=== PATIENT | female | born 1975 | race Caucasian/White ===

== ENCOUNTER → 2018-09-04 | Outpatient (CLI) | payer OTHER ==
--- NOTE | 2018-09-04 18:19 | REP ---
Clinical: Pain. Technique: AP, lateral, bilateral oblique views of the left foot. Findings: Generalized age-related changes are appreciated. Mild ankle swelling cannot be excluded. No acute fracture dislocation. Impression: Generalized age-related changes are suggested. Mild swelling at the ankle cannot be excluded. Electronically Signed by Dangelo Lee MD 09/04/2018 06:11 P
--- NOTE | 2018-09-04 18:19 | REP ---
Clinical: Left ankle pain . Technique: AP, lateral, bilateral oblique views. Findings: Mild soft tissue swelling. No acute fracture dislocation. Joint spaces and ankle mortise are intact. Impression: Mild swelling. No acute fracture or dislocation. Electronically Signed by Dangelo Lee MD 09/04/2018 06:10 P
== END ==
LOC: M WUC 17:51
PROVIDERS: ATTEND Physician Assistant
DX: M25.572 Pain in left ankle and joints of left foot (principal)

== ENCOUNTER 2018-11-02 08:31 | Emergency (ER) | payer OTHER ==
[~2018-11-02] VITALS: Ht 177.8 cm; Wt 97.7 kg
[2018-11-02] MEDS ORDERED: FLUO20CA8 PO (08:51)
[2018-11-02] MEDS ORDERED: NS 1,000 ML IV ONE (09:00)
[2018-11-02] MEDS ORDERED: OXAZEPAM 15 MG CAP PO ONE (09:00)
[2018-11-02] MEDS ORDERED: PROMETHAZINE INJ 25 MG/ML VIAL (J2550) IV ONE (09:00)
[2018-11-02] MEDS ORDERED: THIAMINE 100 MG TAB PO ONE (09:00)
[2018-11-02 09:08] LABS: BASO % 0.5 % (0.0-1.0); EOS % 0.3 % (0.0-3.0); HEMATOCRIT 39.6 % (36.0-47.0); HEMOGLOBIN 13.5 g/dl (12.0-15.5); LYMPH # 1.1 10^3/uL (1.5-4.5); LYMPH % 16.9 % (24.0-44.0); MEAN CORPUSCULAR HEMOGLOBIN 33.6 pg (27.0-33.0); MEAN CORPUSCULAR HGB CONC 34.1 g/dl (32.0-36.5); MEAN CORPUSCULAR VOLUME 98.5 fl (80.0-96.0); MONO # 0.8 10^3/uL (0.0-0.8); MONO % 12.3 % (0.0-5.0); NEUTROPHILS # 4.6 10^3/uL (1.8-7.7); NEUTROPHILS % 69.7 % (36.0-66.0); PLATELET COUNT, AUTOMATED 232 10^3/uL (150-450); RED BLOOD COUNT 4.02 10^6/uL (4.00-5.40); WHITE BLOOD COUNT 6.6 10^3/uL (4.0-10.0)
--- NOTE | 2018-11-02 09:36 | REP ---
PA and lateral chest: There are no comparisons. The lung singleton are clear. The cardiac size is normal. The vincenzo, mediastinum, and skeletal structures are unremarkable. Impression: Negative PA and lateral chest. Electronically Signed by Contreras Tillman MD 11/02/2018 09:27 A
[2018-11-02 09:46] LABS: ALBUMIN 3.6 GM/DL (3.2-5.2); ALT/SGPT 58 U/L (12-78); BILIRUBIN,DIRECT 0.2 MG/DL (0.0-0.2); BILIRUBIN,TOTAL 0.7 MG/DL (0.2-1.0); BLOOD UREA NITROGEN 9 MG/DL (7-18); CARBON DIOXIDE LEVEL 21 MEQ/L (21-32); CHLORIDE LEVEL 106 MEQ/L (98-107); CPK CREATINE PHOSPHOKINASE 243 U/L (26-192); CREATININE FOR GFR 0.74 MG/DL (0.55-1.30); ETHYL ALCOHOL (ETHANOL) 0.016 % (0.000-0.010); FREE T4 0.76 NG/DL (0.76-1.46); GLOMERULAR FILTRATION RATE > 60.0 (>58); GLUCOSE, FASTING 87 MG/DL (70-100); LIPASE 129 U/L (73-393); MB/CK RELATIVE INDEX 0.82 (< OR =4); POTASSIUM SERUM 3.5 MEQ/L (3.5-5.1); SODIUM LEVEL 141 MEQ/L (136-145); THYROID STIMULATING HORMONE 0.762 uIU/ML (0.358-3.740); TOTAL PROTEIN 6.9 GM/DL (6.4-8.2); TROPONIN I < 0.02 NG/ML (< 0.10)
[2018-11-02] MEDS ORDERED: OXAZ30CA2 PO (11:14)
[2018-11-02 11:18] VITALS: BP 176/93
--- NOTE | 2018-11-02 13:43 | ECGEPIP ---
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
== END 2018-11-02 11:31 | disposition home or self-care (01) ==
LOC: M ED 08:31
DX: F10.239 Alcohol dependence with withdrawal, unspecified (principal); D64.9 Anemia, unspecified; Z98.84 Bariatric surgery status; Z88.8 Allergy status to other drugs, medicaments and biological substances
CPT/HCPCS: 36415; 71046; 80048; 80076; 82550; 82553; 83690; 84439; 84443; 84484; 85025; 93005; 93041; 94760; 96361; 96374; 99285; G0480

== ENCOUNTER 2019-09-11 15:49 | Emergency (ER) | payer OTHER ==
[~2019-09-11] VITALS: Ht 177.8 cm; Wt 98.5 kg
[~2019-09-11 15:49] MED LIST: FLUO20CA20 PO; OXAZ30CA2 PO
[2019-09-11] MEDS ORDERED: PROM50TA4 PO (16:04)
[2019-09-11] MEDS ORDERED: OXAZEPAM 15 MG CAP PO ONE (16:45)
[2019-09-11] MEDS ORDERED: NS 1,000 ML IV ONE (16:45)
[2019-09-11] MEDS ORDERED: MULTIVITAMIN -ADULT INJECTION 10 ML, THIAMINE INJection 100 MG, FOLIC ACID 1 MG in NS 1... IV ONE (17:00)
[2019-09-11 17:09] LABS: BASO # 0.1 10^3/uL (0.0-0.2); BASO % 1.1 % (0.0-1.0); EOS # 0.1 10^3/uL (0.0-0.5); EOS % 1.5 % (0.0-3.0); HEMATOCRIT 36.8 % (36.0-47.0); HEMOGLOBIN 12.5 g/dl (12.0-15.5); LYMPH # 1.3 10^3/uL (1.5-5.0); LYMPH % 28.2 % (24.0-44.0); MEAN CORPUSCULAR HEMOGLOBIN 33.1 pg (27.0-33.0); MEAN CORPUSCULAR VOLUME 97.4 fl (80.0-96.0); MONO # 0.7 10^3/uL (0.0-0.8); MONO % 14.3 % (0.0-5.0); NEUTROPHILS # 2.6 10^3/uL (1.5-8.5); NEUTROPHILS % 54.5 % (36.0-66.0); PLATELET COUNT, AUTOMATED 107 10^3/uL (150-450); RED BLOOD COUNT 3.78 10^6/uL (4.00-5.40); WHITE BLOOD COUNT 4.8 10^3/uL (4.0-10.0)
[2019-09-11 17:31] LABS: ALBUMIN 3.3 GM/DL (3.2-5.2); ALT/SGPT 80 U/L (12-78); BILIRUBIN,DIRECT 0.5 MG/DL (0.0-0.2); BILIRUBIN,TOTAL 0.9 MG/DL (0.2-1.0); BLOOD UREA NITROGEN 9 MG/DL (7-18); CARBON DIOXIDE LEVEL 22 MEQ/L (21-32); CHLORIDE LEVEL 104 MEQ/L (98-107); ETHYL ALCOHOL (ETHANOL) 0.224 % (0.000-0.010); GLOMERULAR FILTRATION RATE > 60.0 (>58); GLUCOSE, FASTING 83 MG/DL (70-100); MAGNESIUM LEVEL 1.9 MG/DL (1.8-2.4); POTASSIUM SERUM 3.9 MEQ/L (3.5-5.1); SODIUM LEVEL 139 MEQ/L (136-145); TOTAL PROTEIN 6.5 GM/DL (6.4-8.2)
[2019-09-11 18:53] LABS: INR 1.08; PROTHROMBIN TIME 13.7 SECONDS (11.8-14.0)
[2019-09-11] MEDS ORDERED: PHENobarbitaL 30 MG TAB PO ONE (21:00)
[2019-09-11 21:15] VITALS: BP 140/71
== END 2019-09-11 21:36 | disposition home or self-care (01) ==
LOC: M ED 15:49
DX: F10.230 Alcohol dependence with withdrawal, uncomplicated (principal); R00.0 Tachycardia, unspecified; Z91.013 Allergy to seafood; Z88.8 Allergy status to other drugs, medicaments and biological substances; Z79.899 Other long term (current) drug therapy
CPT/HCPCS: 80048; 80076; 83735; 85025; 85610; 93041; 94760; 96360; 96361; 99285; G0480; J3411

== ENCOUNTER → 2019-10-13 | Emergency (ER) | payer OTHER ==
[~2019-10-13] MED LIST changes: +FLUO20CA22 PO; +NALT50TA4; +OXAZEPAM 15 MG CAP As Ordered ONE; +PROM50TA4 PO
[2019-12-26 15:16] LABS: BLOOD UREA NITROGEN 6 MG/DL (7-18); CALCIUM LEVEL 9.8 MG/DL (8.5-10.1); CARBON DIOXIDE LEVEL 30 MEQ/L (21-32); CHLORIDE LEVEL 104 MEQ/L (98-107); CREATININE FOR GFR 0.71 MG/DL (0.55-1.30); ETHYL ALCOHOL (ETHANOL) < 0.003 % (0.000-0.010); GLOMERULAR FILTRATION RATE > 60.0 (>58); GLUCOSE, FASTING 100 MG/DL (70-100); POTASSIUM SERUM 3.9 MEQ/L (3.5-5.1); SODIUM LEVEL 138 MEQ/L (136-145)
== END | disposition home or self-care (01) ==
LOC: M ED 23:15
DX: F10.239 Alcohol dependence with withdrawal, unspecified (principal); D64.9 Anemia, unspecified; Z91.013 Allergy to seafood; Z79.899 Other long term (current) drug therapy; Z87.891 Personal history of nicotine dependence
CPT/HCPCS: 36415; 80048; 99284; G0480

== ENCOUNTER 2020-01-23 12:16 | Emergency (ER) | payer OTHER ==
[~2020-01-23] VITALS: Ht 177.8 cm; Wt 90.3 kg
[~2020-01-23 12:16] MED LIST changes: -FLUO20CA22 PO; -NALT50TA4; -OXAZEPAM 15 MG CAP As Ordered ONE
[2020-01-23] MEDS ORDERED: FLUO20CA22 PO (12:29)
[2020-01-23] MEDS ORDERED: NALT50TA4 (12:29)
[2020-01-23] MEDS ORDERED: THIAMINE 100 MG TAB PO ONE (12:45)
[2020-01-23] MEDS: NS 1,000 ML IV SCH (13:04)
[2020-01-23 13:19] LABS: HEMATOCRIT 41.5 % (36.0-47.0); HEMOGLOBIN 13.7 g/dl (12.0-15.5); MEAN CORPUSCULAR HEMOGLOBIN 30.6 pg (27.0-33.0); MEAN CORPUSCULAR VOLUME 92.8 fl (80.0-96.0); RED BLOOD COUNT 4.47 10^6/uL (4.00-5.40); WHITE BLOOD COUNT 6.8 10^3/uL (4.0-10.0)
[2020-01-23 13:26] LABS: PLATELET COUNT, AUTOMATED 95 10^3/uL (150-450)
[2020-01-23 13:40] LABS: ACETAMINOPHEN LEVEL < 2.0 UG/ML (10.0-30.0); ALBUMIN 3.7 GM/DL (3.2-5.2); ALT/SGPT 55 U/L (12-78); BILIRUBIN,DIRECT 0.5 MG/DL (0.0-0.2); BLOOD UREA NITROGEN 14 MG/DL (7-18); CALCIUM LEVEL 8.2 MG/DL (8.5-10.1); CARBON DIOXIDE LEVEL 20 MEQ/L (21-32); CHLORIDE LEVEL 105 MEQ/L (98-107); CREATININE FOR GFR 0.75 MG/DL (0.55-1.30); ETHYL ALCOHOL (ETHANOL) 0.402 % (0.000-0.010); GLOMERULAR FILTRATION RATE > 60.0 (>58); GLUCOSE, FASTING 79 MG/DL (70-100); POTASSIUM SERUM 3.8 MEQ/L (3.5-5.1); SALICYLATE LEVEL < 1.7 MG/DL (5.0-30.0); SODIUM LEVEL 141 MEQ/L (136-145); THYROID STIMULATING HORMONE 0.404 uIU/ML (0.358-3.740); TOTAL PROTEIN 6.8 GM/DL (6.4-8.2)
[2020-01-23 13:42] LABS: AMPHETAMINES LEVEL URINE NEGATIVE (NEGATIVE); BARBITURATES URINE NEGATIVE (NEGATIVE); BENZODIAZEPINES URINE POSITIVE (NEGATIVE); CANNABINOIDS URINE NEGATIVE (NEGATIVE); COCAINE METABOLITE URINE NEGATIVE (NEGATIVE); METHADONE URINE NEGATIVE (NEGATIVE); OPIATES URINE NEGATIVE (NEGATIVE); PHENCYCLIDINE URINE NEGATIVE (NEGATIVE)
[2020-01-23] MEDS ORDERED: OXAZEPAM 15 MG CAP PO ONE (15:30)
[2020-01-23] MEDS ORDERED: LORazepam 2 MG/ML VIAL IV STA (15:33)
[2020-01-24] MEDS ORDERED: LORazepam 2 MG TAB PO PRN (00:45)
[2020-01-24] MEDS: NS 1,000 ML IV SCH (02:01)
[2020-01-24] MEDS ORDERED: OXAZEPAM 15 MG CAP PO ONE (03:00)
[2020-01-24] MEDS ORDERED: METAL LOCK LOOP XX ONE (03:07)
[2020-01-24 03:19] VITALS: BP 164/90
[2020-01-24] MEDS ORDERED: FOLIC ACID 1 MG TAB PO SCH (09:00)
[2020-01-24] MEDS ORDERED: MULTIVITAMINS/MINERALS THERAP 1 TAB PO SCH (09:00)
[2020-01-24] MEDS ORDERED: THIAMINE 100 MG TAB PO SCH (09:00)
--- NOTE | 2020-01-24 18:53 | ECGEPIP ---
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
== END 2020-01-24 03:54 | disposition home or self-care (01) ==
LOC: M ED 12:16
DX: F10.220 Alcohol dependence with intoxication, uncomplicated (principal); R00.0 Tachycardia, unspecified; S51.811A Laceration without foreign body of right forearm, initial encounter; X78.1XXA Intentional self-harm by knife, initial encounter; Y92.89 Other specified places as the place of occurrence of the external cause; F32.9 Major depressive disorder, single episode, unspecified; F41.9 Anxiety disorder, unspecified; Z91.013 Allergy to seafood; Z88.8 Allergy status to other drugs, medicaments and biological substances; Z98.84 Bariatric surgery status; Z79.899 Other long term (current) drug therapy
CPT/HCPCS: 80048; 80076; 80307; 84443; 85027; 85049; 85055; 93005; 93041; 94760; 96360; 96361; 99285; G0480

== ENCOUNTER 2020-08-10 08:38 | Emergency (ER) | payer OTHER ==
[~2020-08-10] VITALS: Ht 177.8 cm; Wt 100.0 kg
[~2020-08-10 08:38] MED LIST changes: +FLUO20CA22 PO; +NALT50TA4
[2020-08-10] MEDS ORDERED: LORazepam 2 MG TAB PO PRN (08:55)
[2020-08-10] MEDS ORDERED: OXAZEPAM 15 MG CAP PO ONE (08:55)
[2020-08-10] MEDS ORDERED: MULTIVITAMINS/MINERALS THERAP 1 TAB PO SCH (09:00)
[2020-08-10] MEDS ORDERED: THIAMINE 100 MG TAB PO SCH (09:00)
[2020-08-10] MEDS ORDERED: FOLIC ACID 1 MG TAB PO SCH (09:00)
[2020-08-10] MEDS ORDERED: VITACAP8 PO (09:08)
[2020-08-10] MEDS ORDERED: OXAZ30CA2 PO (11:07)
[2020-08-10 11:30] VITALS: BP 133/82
== END 2020-08-10 11:52 | disposition home or self-care (01) ==
LOC: M ED 08:38
DX: F10.10 Alcohol abuse, uncomplicated (principal); Z79.899 Other long term (current) drug therapy; Z91.89 Other specified personal risk factors, not elsewhere classified; Z91.013 Allergy to seafood

== ENCOUNTER 2020-09-14 16:10 | Emergency (ER) | payer OTHER ==
[~2020-09-14] VITALS: Ht 177.8 cm; Wt 95.5 kg
[~2020-09-14 16:10] MED LIST changes: +VITACAP8 PO
[2020-09-14] MEDS ORDERED: MULTIVITAMIN -ADULT INJECTION 10 ML, THIAMINE INJection 100 MG, FOLIC ACID 1 MG in NS 1... IV ONE (16:25)
[2020-09-14 17:07] LABS: HEMATOCRIT 38.4 % (36.0-47.0); HEMOGLOBIN 12.7 g/dl (12.0-15.5); MEAN CORPUSCULAR HEMOGLOBIN 29.5 pg (27.0-33.0); MEAN CORPUSCULAR HGB CONC 33.1 g/dl (32.0-36.5); MEAN CORPUSCULAR VOLUME 89.1 fl (80.0-96.0); PLATELET COUNT, AUTOMATED 322 10^3/uL (150-450); RED BLOOD COUNT 4.31 10^6/uL (4.00-5.40)
[2020-09-14 17:31] LABS: ALBUMIN 3.5 GM/DL (3.2-5.2); ALT/SGPT 38 U/L (12-78); BILIRUBIN,DIRECT 0.1 MG/DL (0.0-0.2); BILIRUBIN,TOTAL 0.3 MG/DL (0.2-1.0); BLOOD UREA NITROGEN 9 MG/DL (7-18); CARBON DIOXIDE LEVEL 23 MEQ/L (21-32); CHLORIDE LEVEL 111 MEQ/L (98-107); CREATININE FOR GFR 0.52 MG/DL (0.55-1.30); GLOMERULAR FILTRATION RATE > 60.0 (>58); GLUCOSE, FASTING 81 MG/DL (70-100); POTASSIUM SERUM 3.7 MEQ/L (3.5-5.1); SALICYLATE LEVEL < 1.7 MG/DL (5.0-30.0); SODIUM LEVEL 146 MEQ/L (136-145); TOTAL PROTEIN 6.9 GM/DL (6.4-8.2)
[2020-09-14 17:32] LABS: AMPHETAMINES LEVEL URINE NEGATIVE (NEGATIVE); BARBITURATES URINE NEGATIVE (NEGATIVE); BENZODIAZEPINES URINE NEGATIVE (NEGATIVE); CANNABINOIDS URINE NEGATIVE (NEGATIVE); COCAINE METABOLITE URINE NEGATIVE (NEGATIVE); METHADONE URINE NEGATIVE (NEGATIVE); OPIATES URINE NEGATIVE (NEGATIVE); PHENCYCLIDINE URINE NEGATIVE (NEGATIVE)
[2020-09-14 17:32] LABS: ACETAMINOPHEN LEVEL < 2.0 UG/ML (10.0-30.0); THYROID STIMULATING HORMONE 0.306 uIU/ML (0.358-3.740)
[2020-09-14 17:34] LABS: HCG, SERUM QUALITATIVE NEGATIVE (NEGATIVE)
[2020-09-14] MEDS ORDERED: ACETAMINOPHEN TAB 650MG DOSE (2X325MG) PO ONE (18:40)
--- NOTE | 2020-09-14 19:30 | ECGEPIP ---
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
[2020-09-14] MEDS ORDERED: OXAZEPAM 15 MG CAP PO ONE (23:05)
[2020-09-15 01:00] VITALS: BP 148/81
== END 2020-09-15 01:17 | disposition home or self-care (01) ==
LOC: M ED 16:10 → EDBD 16:10 → M ED 09-15 01:17
DX: F10.129 Alcohol abuse with intoxication, unspecified (principal); F41.9 Anxiety disorder, unspecified; F32.9 Major depressive disorder, single episode, unspecified; Z98.84 Bariatric surgery status; Z79.899 Other long term (current) drug therapy; Z91.89 Other specified personal risk factors, not elsewhere classified; Z91.013 Allergy to seafood
CPT/HCPCS: 80048; 80076; 80143; 80307; 82077; 84443; 84703; 85027; 93005; 93041; 96365; 96366; 99285; J3411

== ENCOUNTER 2020-09-26 13:19 | Emergency (ER) | payer OTHER ==
[~2020-09-26] VITALS: Ht 177.8 cm; Wt 95.5 kg
[2020-09-26] MEDS ORDERED: NALT50TA4 PO (13:28)
[2020-09-26] MEDS ORDERED: HYDR50CA2 PO (13:28)
[2020-09-26] MEDS ORDERED: MULTIVITAMIN -ADULT INJECTION 10 ML, THIAMINE INJection 100 MG, FOLIC ACID 1 MG in NS 1... IV ONE (15:25)
[2020-09-26 16:19] LABS: BASO % 1.2 % (0.0-1.0); EOS % 1.2 % (0.0-3.0); HEMATOCRIT 36.6 % (36.0-47.0); HEMOGLOBIN 12.2 g/dl (12.0-15.5); LYMPH # 1.7 10^3/uL (1.5-5.0); LYMPH % 50.7 % (24.0-44.0); MEAN CORPUSCULAR HEMOGLOBIN 29.5 pg (27.0-33.0); MEAN CORPUSCULAR HGB CONC 33.3 g/dl (32.0-36.5); MEAN CORPUSCULAR VOLUME 88.4 fl (80.0-96.0); MONO # 0.4 10^3/uL (0.0-0.8); MONO % 11.4 % (2.0-8.0); NEUTROPHILS # 1.2 10^3/uL (1.5-8.5); NEUTROPHILS % 35.2 % (36.0-66.0); PLATELET COUNT, AUTOMATED 265 10^3/uL (150-450); RED BLOOD COUNT 4.14 10^6/uL (4.00-5.40); WHITE BLOOD COUNT 3.4 10^3/uL (4.0-10.0)
[2020-09-26 17:04] LABS: ALBUMIN 3.5 GM/DL (3.2-5.2); ALT/SGPT 54 U/L (12-78); BILIRUBIN,TOTAL 0.3 MG/DL (0.2-1.0); BLOOD UREA NITROGEN 6 MG/DL (7-18); CALCIUM LEVEL 8.4 MG/DL (8.5-10.1); CARBON DIOXIDE LEVEL 27 MEQ/L (21-32); CHLORIDE LEVEL 110 MEQ/L (98-107); GLOMERULAR FILTRATION RATE > 60.0 (>58); GLUCOSE, FASTING 86 MG/DL (70-100); POTASSIUM SERUM 4.2 MEQ/L (3.5-5.1); SODIUM LEVEL 144 MEQ/L (136-145); TOTAL PROTEIN 6.7 GM/DL (6.4-8.2)
[2020-09-26] MEDS ORDERED: OXAZEPAM 15 MG CAP PO ONE ×2 (19:45→21:40)
[2020-09-26] MEDS ORDERED: OXAZ30CA2 PO (21:15)
[2020-09-26 21:57] VITALS: BP 141/99
== END 2020-09-26 22:00 | disposition home or self-care (01) ==
LOC: M ED 13:19
DX: F10.139 Alcohol abuse with withdrawal, unspecified (principal); F32.9 Major depressive disorder, single episode, unspecified; F41.9 Anxiety disorder, unspecified; F17.200 Nicotine dependence, unspecified, uncomplicated; Z79.899 Other long term (current) drug therapy; Z91.89 Other specified personal risk factors, not elsewhere classified; Z91.013 Allergy to seafood
CPT/HCPCS: 80053; 85025; 96365; 96366; 99285; J3411

== ENCOUNTER → 2020-10-02 | Outpatient (REF) | payer OTHER ==
[~2020-10-02] MED LIST changes: +HYDR50CA2 PO; +NALT50TA4 PO
== END ==
LOC: M LAB REF 19:41
PROVIDERS: ATTEND Physician Assistant
DX: K60.2 Anal fissure, unspecified (principal)

== ENCOUNTER 2020-10-13 09:42 | Emergency (ER) | payer OTHER ==
[~2020-10-13] VITALS: Ht 177.8 cm; Wt 97.0 kg
[2020-10-13] MEDS ORDERED: AMOX875T2 (09:58)
[2020-10-13] MEDS ORDERED: MULTIVITAMIN -ADULT INJECTION 10 ML, THIAMINE INJection 100 MG, FOLIC ACID 1 MG in NS 1... IV ONE (10:55)
[2020-10-13] MEDS ORDERED: LORazepam 2 MG/ML VIAL IV STA (10:56)
[2020-10-13 11:07] LABS: HEMATOCRIT 37.1 % (36.0-47.0); HEMOGLOBIN 12.1 g/dl (12.0-15.5); MEAN CORPUSCULAR HGB CONC 32.6 g/dl (32.0-36.5); PLATELET COUNT, AUTOMATED 299 10^3/uL (150-450); RED BLOOD COUNT 4.17 10^6/uL (4.00-5.40)
[2020-10-13 11:25] LABS: ETHYL ALCOHOL (ETHANOL) 0.046 % (0.000-0.010)
[2020-10-13] MEDS: LORazepam 2 MG TAB PO PRN ×2 (12:31→15:35)
[2020-10-13 12:57] LABS: ACETAMINOPHEN LEVEL < 2.0 UG/ML (10.0-30.0); ALBUMIN 3.7 GM/DL (3.2-5.2); ALT/SGPT 60 U/L (12-78); BILIRUBIN,DIRECT 0.1 MG/DL (0.0-0.2); BILIRUBIN,TOTAL 0.7 MG/DL (0.2-1.0); BLOOD UREA NITROGEN 8 MG/DL (7-18); CALCIUM LEVEL 8.6 MG/DL (8.5-10.1); CARBON DIOXIDE LEVEL 23 MEQ/L (21-32); CHLORIDE LEVEL 106 MEQ/L (98-107); CREATININE FOR GFR 0.54 MG/DL (0.55-1.30); GLOMERULAR FILTRATION RATE > 60.0 (>58); GLUCOSE, FASTING 84 MG/DL (70-100); POTASSIUM SERUM 4.8 MEQ/L (3.5-5.1); SALICYLATE LEVEL < 1.7 MG/DL (5.0-30.0); SODIUM LEVEL 139 MEQ/L (136-145); THYROID STIMULATING HORMONE 0.489 uIU/ML (0.358-3.740); TOTAL PROTEIN 7.3 GM/DL (6.4-8.2)
[2020-10-13] MEDS ORDERED: ACETAMINOPHEN 325 MG TAB PO ONE (13:55)
[2020-10-13 15:38] VITALS: BP 148/74
== END 2020-10-13 15:40 | disposition home or self-care (01) ==
LOC: M ED 09:42
DX: F10.120 Alcohol abuse with intoxication, uncomplicated (principal)
CPT/HCPCS: 80047; 80048; 80076; 80143; 82077; 84443; 85027; 93041; 96365; 96366; 96375; 99285; J2060; J3411

== ENCOUNTER 2021-03-14 10:37 | Emergency (ER) | payer OTHER ==
[~2021-03-14] VITALS: Ht 177.8 cm; Wt 77.3 kg
[~2021-03-14 10:37] MED LIST changes: +AMOX875T2; +FOLIC ACID 1 MG TAB PO SCH; +MULTIVITAMINS/MINERALS THERAP 1 TAB PO SCH; +THIAMINE 100 MG TAB PO SCH
[2021-03-14] MEDS ORDERED: LORazepam 2 MG TAB PO PRN (11:05)
[2021-03-14] MEDS ORDERED: ONDANSETRON 4MG/2ML VIAL IV ONE (11:05)
[2021-03-14 14:00] VITALS: BP 138/93
[2021-03-14 14:04] LABS: RSV AMPLIFICATION NEGATIVE (NEGATIVE)
== END 2021-03-14 14:49 | disposition home or self-care (01) ==
LOC: M ED 10:37 → EDBD 10:37 → M ED 14:49
DX: F10.10 Alcohol abuse, uncomplicated (principal); F41.9 Anxiety disorder, unspecified; F32.9 Major depressive disorder, single episode, unspecified; Z98.84 Bariatric surgery status; Z79.899 Other long term (current) drug therapy; Z91.89 Other specified personal risk factors, not elsewhere classified; Z91.013 Allergy to seafood
CPT/HCPCS: 87631; 93041; 96374; 99285; J2405

== ENCOUNTER 2021-05-15 08:01 | Emergency (ER) | payer OTHER ==
[~2021-05-15] VITALS: Ht 177.8 cm; Wt 102.7 kg
[~2021-05-15 08:01] MED LIST changes: +FLUO-96 PO; -FLUO20CA20 PO; -FOLIC ACID 1 MG TAB PO SCH; -MULTIVITAMINS/MINERALS THERAP 1 TAB PO SCH; -THIAMINE 100 MG TAB PO SCH
[2021-05-15] MEDS ORDERED: NS 1,000 ML IV ONE (08:55)
[2021-05-15] MEDS ORDERED: LORazepam 2 MG TAB PO PRN (08:55)
[2021-05-15] MEDS ORDERED: OXAZEPAM 15MG CAP PO ONE (08:55)
[2021-05-15] MEDS ORDERED: FOLIC ACID 1 MG TAB PO SCH (09:00)
[2021-05-15] MEDS ORDERED: MULTIVITAMINS/MINERALS THERAP 1 TAB PO SCH (09:00)
[2021-05-15] MEDS ORDERED: THIAMINE 100 MG TAB PO SCH (09:00)
[2021-05-15 09:06] LABS: HEMATOCRIT 36.5 % (36.0-47.0); HEMOGLOBIN 11.7 g/dl (12.0-15.5); MEAN CORPUSCULAR HEMOGLOBIN 26.3 pg (27.0-33.0); MEAN CORPUSCULAR HGB CONC 32.1 g/dl (32.0-36.5); PLATELET COUNT, AUTOMATED 292 10^3/uL (150-450); RED BLOOD COUNT 4.45 10^6/uL (4.00-5.40); WHITE BLOOD COUNT 6.7 10^3/uL (4.0-10.0)
[2021-05-15 09:23] LABS: INR 1.03; PROTHROMBIN TIME 13.9 SECONDS (12.7-14.5)
[2021-05-15 09:40] LABS: ALBUMIN 3.7 GM/DL (3.2-5.2); ALT/SGPT 44 U/L (12-78); BILIRUBIN,DIRECT 0.2 MG/DL (0.0-0.2); BILIRUBIN,TOTAL 0.8 MG/DL (0.2-1.0); BLOOD UREA NITROGEN 10 MG/DL (7-18); CALCIUM LEVEL 9.1 MG/DL (8.5-10.1); CARBON DIOXIDE LEVEL 27 MEQ/L (21-32); CHLORIDE LEVEL 104 MEQ/L (98-107); CREATININE FOR GFR 0.75 MG/DL (0.55-1.30); ETHYL ALCOHOL (ETHANOL) < 0.003 % (0.000-0.010); GLOMERULAR FILTRATION RATE > 60.0 (>58); GLUCOSE, FASTING 89 MG/DL (70-100); LIPASE 70 U/L (73-393); POTASSIUM SERUM 4.2 MEQ/L (3.5-5.1); SODIUM LEVEL 138 MEQ/L (136-145); TOTAL PROTEIN 7.4 GM/DL (6.4-8.2)
[2021-05-15 10:02] LABS: RSV AMPLIFICATION NEGATIVE (NEGATIVE)
[2021-05-15 13:29] LABS: AMPHETAMINES LEVEL URINE NEGATIVE (NEGATIVE); BARBITURATES URINE NEGATIVE (NEGATIVE); BENZODIAZEPINES URINE POSITIVE (NEGATIVE); CANNABINOIDS URINE POSITIVE (NEGATIVE); COCAINE METABOLITE URINE NEGATIVE (NEGATIVE); METHADONE URINE NEGATIVE (NEGATIVE); OPIATES URINE NEGATIVE (NEGATIVE); PHENCYCLIDINE URINE NEGATIVE (NEGATIVE)
[2021-05-15 13:46] VITALS: BP 179/89
== END 2021-05-15 13:53 | disposition home or self-care (01) ==
LOC: M ED 08:01
DX: F10.130 Alcohol abuse with withdrawal, uncomplicated (principal); U07.1 COVID-19; F17.200 Nicotine dependence, unspecified, uncomplicated; Z91.013 Allergy to seafood; Z79.899 Other long term (current) drug therapy

== ENCOUNTER 2021-07-09 10:00 | Outpatient (RCR) | payer BC, OTHER | END 2021-07-11 | LOC: M OUTALCOH 10:00 | PROVIDERS: ATTEND Psychiatry & Neurology Psychiatry | DX: F10.20 Alcohol dependence, uncomplicated (principal) ==

== ENCOUNTER 2021-08-06 15:58 | Emergency (ER) | payer BC ==
[~2021-08-06] VITALS: Ht 177.8 cm; Wt 104.5 kg
[2021-08-06] MEDS ORDERED: LORazepam 2 MG TAB PO PRN (18:25)
[2021-08-06] MEDS ORDERED: MULTIVITAMIN -ADULT INJECTION 10 ML, THIAMINE INJection 100 MG, FOLIC ACID 1 MG in NS 1... IV ONE (18:25)
[2021-08-06 18:56] VITALS: BP 159/91
[2021-08-06 19:02] LABS: BASO % 0.6 % (0.0-1.0); EOS # 0.1 10^3/uL (0.0-0.5); EOS % 2.2 % (0.0-3.0); HEMATOCRIT 35.7 % (36.0-47.0); HEMOGLOBIN 11.4 g/dl (12.0-15.5); LYMPH # 2.2 10^3/uL (1.5-5.0); LYMPH % 44.3 % (24.0-44.0); MEAN CORPUSCULAR HEMOGLOBIN 25.7 pg (27.0-33.0); MEAN CORPUSCULAR HGB CONC 31.9 g/dl (32.0-36.5); MEAN CORPUSCULAR VOLUME 80.6 fl (80.0-96.0); MONO # 0.5 10^3/uL (0.0-0.8); MONO % 10.9 % (2.0-8.0); NEUTROPHILS # 2.1 10^3/uL (1.5-8.5); NEUTROPHILS % 41.8 % (36.0-66.0); PLATELET COUNT, AUTOMATED 244 10^3/uL (150-450); RED BLOOD COUNT 4.43 10^6/uL (4.00-5.40); WHITE BLOOD COUNT 4.9 10^3/uL (4.0-10.0)
[2021-08-06 19:13] LABS: INR 1.05; PROTHROMBIN TIME 14.1 SECONDS (12.7-14.5)
[2021-08-06 19:14] LABS: PARTIAL THROMBOPLASTIN TIME 29.4 SECONDS (25.9-37.0)
[2021-08-06 19:28] LABS: ALBUMIN 3.3 GM/DL (3.2-5.2); ALT/SGPT 27 U/L (12-78); BILIRUBIN,TOTAL 0.5 MG/DL (0.2-1.0); BLOOD UREA NITROGEN 10 MG/DL (7-18); CALCIUM LEVEL 8.5 MG/DL (8.5-10.1); CARBON DIOXIDE LEVEL 25 MEQ/L (21-32); CHLORIDE LEVEL 108 MEQ/L (98-107); GLOMERULAR FILTRATION RATE > 60.0 (>58); GLUCOSE, FASTING 87 MG/DL (70-100); POTASSIUM SERUM 4.6 MEQ/L (3.5-5.1); SODIUM LEVEL 142 MEQ/L (136-145); TOTAL PROTEIN 6.9 GM/DL (6.4-8.2)
[2021-08-06] MEDS ORDERED: ONDANSETRON 4MG/2ML VIAL IV ONE (19:55)
[2021-08-06] MEDS ORDERED: ACETAMINOPHEN 325 MG TAB PO ONE (19:55)
[2021-08-06] MEDS ORDERED: OXAZEPAM 15MG CAP PO ONE (20:15)
[2021-08-06] MEDS ORDERED: OXAZ30CA2 PO (20:20)
== END 2021-08-06 22:17 | disposition home or self-care (01) ==
LOC: M ED 15:58
DX: F10.139 Alcohol abuse with withdrawal, unspecified (principal); R11.0 Nausea; R51.9 Headache, unspecified; F17.200 Nicotine dependence, unspecified, uncomplicated; Z91.013 Allergy to seafood
CPT/HCPCS: 80053; 82077; 85025; 85610; 85730; 96365; 96375; 99284; J2405; J3411

== ENCOUNTER 2021-08-18 10:09 | Emergency (ER) | payer OTHER, BC ==
[~2021-08-18] VITALS: Ht 177.8 cm; Wt 98.2 kg
[~2021-08-18 10:09] MED LIST changes: +FOLIC ACID 1 MG TAB PO SCH; +MULTIVITAMINS/MINERALS THERAP 1 TAB PO SCH; +THIAMINE 100 MG TAB PO SCH
[2021-08-18] MEDS ORDERED: NALT50TA4 (10:39)
[2021-08-18] MEDS ORDERED: FLUO10CA18 PO (10:39)
[2021-08-18] MEDS ORDERED: LORazepam 2 MG TAB PO PRN (13:30)
[2021-08-18 13:31] LABS: BASO % 1.2 % (0.0-1.0); EOS % 1.2 % (0.0-3.0); HEMATOCRIT 37.3 % (36.0-47.0); LYMPH # 1.1 10^3/uL (1.5-5.0); MEAN CORPUSCULAR HEMOGLOBIN 26.8 pg (27.0-33.0); MEAN CORPUSCULAR HGB CONC 32.2 g/dl (32.0-36.5); MEAN CORPUSCULAR VOLUME 83.3 fl (80.0-96.0); MONO # 0.3 10^3/uL (0.0-0.8); MONO % 9.1 % (2.0-8.0); NEUTROPHILS # 1.9 10^3/uL (1.5-8.5); NEUTROPHILS % 56.5 % (36.0-66.0); PLATELET COUNT, AUTOMATED 165 10^3/uL (150-450); RED BLOOD COUNT 4.48 10^6/uL (4.00-5.40); WHITE BLOOD COUNT 3.4 10^3/uL (4.0-10.0)
[2021-08-18 13:55] LABS: AMPHETAMINES LEVEL URINE NEGATIVE (NEGATIVE); BARBITURATES URINE NEGATIVE (NEGATIVE); BENZODIAZEPINES URINE POSITIVE (NEGATIVE); CANNABINOIDS URINE NEGATIVE (NEGATIVE); COCAINE METABOLITE URINE NEGATIVE (NEGATIVE); METHADONE URINE NEGATIVE (NEGATIVE); OPIATES URINE NEGATIVE (NEGATIVE); PHENCYCLIDINE URINE NEGATIVE (NEGATIVE)
[2021-08-18 14:05] LABS: ACETAMINOPHEN LEVEL < 2.0 UG/ML (10.0-30.0); ALBUMIN 3.5 GM/DL (3.2-5.2); ALT/SGPT 51 U/L (12-78); BILIRUBIN,DIRECT 0.2 MG/DL (0.0-0.2); BILIRUBIN,TOTAL 0.4 MG/DL (0.2-1.0); BLOOD UREA NITROGEN 12 MG/DL (7-18); CALCIUM LEVEL 8.8 MG/DL (8.5-10.1); CARBON DIOXIDE LEVEL 23 MEQ/L (21-32); CHLORIDE LEVEL 108 MEQ/L (98-107); CREATININE FOR GFR 0.61 MG/DL (0.55-1.30); ETHYL ALCOHOL (ETHANOL) 0.225 % (0.000-0.010); GLOMERULAR FILTRATION RATE > 60.0 (>58); GLUCOSE, FASTING 86 MG/DL (70-100); LIPASE 235 U/L (73-393); POTASSIUM SERUM 4.4 MEQ/L (3.5-5.1); SALICYLATE LEVEL < 1.7 MG/DL (5.0-30.0); SODIUM LEVEL 140 MEQ/L (136-145); TOTAL PROTEIN 7.3 GM/DL (6.4-8.2)
[2021-08-18 15:08] LABS: RSV AMPLIFICATION NEGATIVE (NEGATIVE)
[2021-08-18] MEDS ORDERED: MULTIVITAMIN -ADULT INJECTION 10 ML, THIAMINE INJection 100 MG, FOLIC ACID 1 MG in NS 1... IV ONE (16:00)
[2021-08-18] MEDS ORDERED: ONDANSETRON 4MG/2ML VIAL IV ONE (17:45)
[2021-08-18] MEDS ORDERED: OXAZ10CA3 PO ×6 (17:59→19:08)
[2021-08-18] MEDS ORDERED: OXAZEPAM 10MG CAP PO ONE (18:00)
[2021-08-18 19:03] VITALS: BP 147/80
== END 2021-08-18 19:19 | disposition home or self-care (01) ==
LOC: M ED 10:09
DX: F10.180 Alcohol abuse with alcohol-induced anxiety disorder (principal); R11.0 Nausea; E86.0 Dehydration; R74.01 Elevation of levels of liver transaminase levels; F32.A Depression, unspecified; Z98.84 Bariatric surgery status; F17.200 Nicotine dependence, unspecified, uncomplicated; Z79.899 Other long term (current) drug therapy
CPT/HCPCS: 80048; 80076; 80143; 80307; 82077; 83690; 84443; 85025; 87631; 93041; 94760; 96365; 96366; 96375; 99284; J2405; J3411

== ENCOUNTER 2021-10-24 15:38 | Emergency (ER) | payer BC, OTHER ==
[~2021-10-24] VITALS: Ht 177.8 cm; Wt 94.5 kg
[~2021-10-24 15:38] MED LIST changes: +FLUO10CA18 PO; -FOLIC ACID 1 MG TAB PO SCH; -MULTIVITAMINS/MINERALS THERAP 1 TAB PO SCH; +OXAZ10CA3 PO; -THIAMINE 100 MG TAB PO SCH
[2021-10-24] MEDS ORDERED: OXAZ30CA2 (15:57)
[2021-10-24] MEDS ORDERED: ACAM0.05 (15:57)
[2021-10-24] MEDS ORDERED: MULTIVITAMIN -ADULT INJECTION 10 ML, THIAMINE INJection 100 MG, FOLIC ACID 1 MG in NS 1... IV ONE (16:40)
[2021-10-24] MEDS ORDERED: NS 500 ML IV ONE (16:40)
[2021-10-24] MEDS ORDERED: MIDAZOLAM INJ 2MG/2ML VIAL (J2250 PER 1MG) IV STA (16:41)
[2021-10-24] MEDS ORDERED: LORazepam 2 MG TAB PO PRN (17:10)
[2021-10-24 17:19] LABS: HEMATOCRIT 37.6 % (36.0-47.0); HEMOGLOBIN 12.2 g/dl (12.0-15.5); MEAN CORPUSCULAR HEMOGLOBIN 26.1 pg (27.0-33.0); MEAN CORPUSCULAR HGB CONC 32.4 g/dl (32.0-36.5); MEAN CORPUSCULAR VOLUME 80.5 fl (80.0-96.0); PLATELET COUNT, AUTOMATED 306 10^3/uL (150-450); RED BLOOD COUNT 4.67 10^6/uL (4.00-5.40); WHITE BLOOD COUNT 7.9 10^3/uL (4.0-10.0)
[2021-10-24 18:00] LABS: ALBUMIN 3.8 GM/DL (3.2-5.2); ALT/SGPT 29 U/L (12-78); BILIRUBIN,DIRECT 0.2 MG/DL (0.0-0.2); BILIRUBIN,TOTAL 0.6 MG/DL (0.2-1.0); BLOOD UREA NITROGEN 11 MG/DL (7-18); CALCIUM LEVEL 8.6 MG/DL (8.5-10.1); CARBON DIOXIDE LEVEL 23 MEQ/L (21-32); CHLORIDE LEVEL 102 MEQ/L (98-107); CREATININE FOR GFR 0.78 MG/DL (0.55-1.30); ETHYL ALCOHOL (ETHANOL) 0.274 % (0.000-0.010); GLOMERULAR FILTRATION RATE > 60.0 (>58); GLUCOSE, FASTING 70 MG/DL (70-100); POTASSIUM SERUM 4.2 MEQ/L (3.5-5.1); SALICYLATE LEVEL < 1.7 MG/DL (5.0-30.0); SODIUM LEVEL 136 MEQ/L (136-145); THYROID STIMULATING HORMONE 0.489 uIU/ML (0.358-3.740); TOTAL PROTEIN 7.5 GM/DL (6.4-8.2)
[2021-10-24 18:01] LABS: ACETAMINOPHEN LEVEL < 2.0 UG/ML (10.0-30.0)
[2021-10-24] MEDS ORDERED: PILL CUTTER 1 EACH XX ONE (18:46)
[2021-10-24 20:17] LABS: AMPHETAMINES LEVEL URINE NEGATIVE (NEGATIVE); BARBITURATES URINE NEGATIVE (NEGATIVE); BENZODIAZEPINES URINE NEGATIVE (NEGATIVE); CANNABINOIDS URINE POSITIVE (NEGATIVE); COCAINE METABOLITE URINE NEGATIVE (NEGATIVE); METHADONE URINE NEGATIVE (NEGATIVE); OPIATES URINE NEGATIVE (NEGATIVE); PHENCYCLIDINE URINE NEGATIVE (NEGATIVE)
[2021-10-24] MEDS ORDERED: THIAMINE 100 MG TAB PO SCH (21:00)
[2021-10-24] MEDS ORDERED: OXAZEPAM 15MG CAP PO ONE (22:00)
[2021-10-24] MEDS ORDERED: OXAZ30CA2 PO (22:00)
[2021-10-24 22:45] VITALS: BP 131/85
[2021-10-25] MEDS ORDERED: MULTIVITAMINS/MINERALS THERAP 1 TAB PO SCH (09:00)
[2021-10-25] MEDS ORDERED: FOLIC ACID 1MG TAB PO SCH (09:00)
== END 2021-10-24 23:15 | disposition home or self-care (01) ==
LOC: M ED 15:38
DX: F10.239 Alcohol dependence with withdrawal, unspecified (principal)
CPT/HCPCS: 80048; 80076; 80143; 80307; 82077; 84443; 85027; 93005; 93041; 96365; 96366; 99285; J3411

== ENCOUNTER 2021-11-25 19:46 | Emergency (ER) | payer BC ==
[~2021-11-25] VITALS: Ht 177.8 cm; Wt 95.5 kg
[~2021-11-25 19:46] MED LIST changes: +ACAM0.05; +OXAZ30CA2
[2021-11-25 22:36] LABS: BASO # 0.1 10^3/uL (0.0-0.2); BASO % 0.7 % (0.0-1.0); EOS # 0.1 10^3/uL (0.0-0.5); EOS % 1.8 % (0.0-3.0); HEMATOCRIT 39.2 % (36.0-47.0); HEMOGLOBIN 12.5 g/dl (12.0-15.5); LYMPH # 2.5 10^3/uL (1.5-5.0); LYMPH % 36.8 % (24.0-44.0); MEAN CORPUSCULAR HEMOGLOBIN 25.7 pg (27.0-33.0); MEAN CORPUSCULAR HGB CONC 31.9 g/dl (32.0-36.5); MEAN CORPUSCULAR VOLUME 80.5 fl (80.0-96.0); MONO # 0.4 10^3/uL (0.0-0.8); MONO % 6.4 % (2.0-8.0); NEUTROPHILS # 3.7 10^3/uL (1.5-8.5); NEUTROPHILS % 54.2 % (36.0-66.0); PLATELET COUNT, AUTOMATED 341 10^3/uL (150-450); RED BLOOD COUNT 4.87 10^6/uL (4.00-5.40); WHITE BLOOD COUNT 6.8 10^3/uL (4.0-10.0)
[2021-11-25 23:09] LABS: HCG, SERUM QUALITATIVE NEGATIVE (NEGATIVE)
[2021-11-25 23:21] LABS: AMPHETAMINES LEVEL URINE NEGATIVE (NEGATIVE); BARBITURATES URINE NEGATIVE (NEGATIVE); BENZODIAZEPINES URINE NEGATIVE (NEGATIVE); CANNABINOIDS URINE NEGATIVE (NEGATIVE); COCAINE METABOLITE URINE NEGATIVE (NEGATIVE); METHADONE URINE NEGATIVE (NEGATIVE); OPIATES URINE NEGATIVE (NEGATIVE); PHENCYCLIDINE URINE NEGATIVE (NEGATIVE)
[2021-11-25 23:27] LABS: ACETAMINOPHEN LEVEL < 2.0 UG/ML (10.0-30.0); ALBUMIN 3.7 GM/DL (3.2-5.2); ALT/SGPT 32 U/L (12-78); BILIRUBIN,DIRECT 0.1 MG/DL (0.0-0.2); BILIRUBIN,TOTAL 0.3 MG/DL (0.2-1.0); BLOOD UREA NITROGEN 11 MG/DL (7-18); CALCIUM LEVEL 8.8 MG/DL (8.5-10.1); CARBON DIOXIDE LEVEL 24 MEQ/L (21-32); CHLORIDE LEVEL 107 MEQ/L (98-107); CREATININE FOR GFR 0.69 MG/DL (0.55-1.30); ETHYL ALCOHOL (ETHANOL) 0.329 % (0.000-0.010); GLOMERULAR FILTRATION RATE > 60.0 (>58); GLUCOSE, FASTING 76 MG/DL (70-100); POTASSIUM SERUM 4.1 MEQ/L (3.5-5.1); SALICYLATE LEVEL < 1.7 MG/DL (5.0-30.0); SODIUM LEVEL 140 MEQ/L (136-145); TOTAL PROTEIN 7.8 GM/DL (6.4-8.2)
[2021-11-26 06:19] VITALS: BP 167/83
[2021-11-26] MEDS ORDERED: MIDAZOLAM 5MG/ML 1ML VIAL (J2250 PER 1MG) IM ONE (06:20)
[2021-11-26] MEDS ORDERED: OXAZEPAM 15MG CAP PO ONE (06:20)
[2021-11-26] MEDS ORDERED: ONDANSETRON 4MG ORAL DISINTEGRATING TAB PO ONE (06:20)
[2021-11-26] MEDS ORDERED: MIDAZOLAM INJ 2MG/2ML VIAL (J2250 PER 1MG) IM ONE (06:30)
[2021-11-26] MEDS ORDERED: ONDA4TAB6 PO (06:32)
[2021-11-26] MEDS ORDERED: OXAZ30CA2 PO (06:32)
== END 2021-11-26 06:55 | disposition home or self-care (01) ==
LOC: M ED 19:46
DX: F10.220 Alcohol dependence with intoxication, uncomplicated (principal); Z98.84 Bariatric surgery status
CPT/HCPCS: 80048; 80076; 80143; 80307; 82077; 84443; 84703; 85025; 96372; 99284; J2250